=== PATIENT | female | born 1960 | race Caucasian/White ===

== ENCOUNTER 2018-06-13 06:32 | Day surgery (SDC) | payer BC ==
--- NOTE | 2018-06-08 15:06 | RAD REPORT ---
EXAM DESCRIPTION: Sánchez Hardin (2 Views)06/08/2018 2:48 pm CLINICAL HISTORY: Preop for heart catheterization COMPARISON: None FINDINGS: The lungs appear clear of acute infiltrate. The heart is normal size IMPRESSION: No acute abnormalities displayed
[2018-06-08 16:12] LABS: Protime INR 1.04
--- OUTSIDE RECORDS SUMMARY | 2018-06-13 06:34 | XMS REPORT ---
:1960 [facility] Address [address] [place] [address] Care Team Providers Name Role Phone Unavailable Unavailable Unavailable Payers Payer Name Policy Type Policy Number Effective Date Expiration Date Problems This patient has no known problems. Allergies, Adverse Reactions, Alerts Allergy Allergy Status Severity Reaction(s) Onset Inactive Treating Comments Name Type Date Date Clinician No Known DA Active U 2018-05 Allergies 00:00:0 0 Medications This patient has no known medications. Results Test Description Test Time Test Comments Text Results Atomic Results Result Comments AG HEPATITIS B SURFACE 2018-05-29 14:43:00 Test Item Value Reference Range Comments AG HEPATITIS B SURFACE (test code=HBSAG) NONREACTIVE NONREACTIVE IS CONSENT FORM SIGNED FOR HIV TESTING? YAB HEPATITIS C [id number] 14:43: 00 Test Item Value Reference Range Comments AB HEPATITIS C (test code=HCVAB) NONREACTIVE NONREACTIVE SIGNAL TO CUTOFF (test code=CUTOFF) 0.04 <0.80 IS CONSENT FORM SIGNED FOR HIV TESTING? YAB HIV 1 14:43:00 Test Item Value Reference Range Comments AB HIV 1 2 (test NONREACTIVE NONREACTIVE Done by [employer] 4th code=NJC12UA) Gen HIV Ag/Ab Combo Screen IS CONSENT FORM SIGNED FOR HIV TESTING? YCHEMISTRY 7 [id number] 14:15:00 Test Item Value Reference Range Comments SODIUM (test code=NA) 140 mEq/L 135-145 POTASSIUM (test code=K) 4.3 mEq/L 3.5-5.0 CHLORIDE (test code=CL) 102 mEq/L 100-115 CARBON DIOXIDE (test code=CO2) 29 mEq/L 22-31 ANION GAP (test code=GAP) 13.50 10-20 GLUCOSE (test code=GLU) 96 mg/dL 65-110 BLOOD UREA NITROGEN (test code=BUN) 17 mg/dL 7-18 GLOMERULAR FILTRATION RATE (test code=GFR) 103 ml/min >60 CREATININE (test code=CREAT) 0.6 mg/dL 0.5-1.0 CALCIUM (test code=CA) 9.2 mg/dL 8.4-10.2 URINALYSIS [id number] 13:15:00 Test Item Value Reference Range Comments UA COLOR (test code=COLU) STRAW YELLOW UA APPEARANCE (test code=APPU) CLEAR CLEAR UA GLUCOSE DIPSTICK (test code=DGLUU) NEGATIVE NEG UA BILIRUBIN DIPSTICK (test code=BILU) NEGATIVE NEG UA KETONE DIPSTICK (test code=KETU) NEGATIVE NEG UA SPECIFIC GRAVITY (test code=SGU) 1.008 1.001-1.035 UA BLOOD DIPSTICK (test code=WINSTON) NEG NEG UA PH DIPSTICK (test code=TAYLOR) 6.0 5-9 UA PROTEIN DIPSTICK (test code=PROU) NEGATIVE NEG UA UROBILINIOGEN DIPSTICK (test code=URO) NEGATIVE mg/dL NEG UA NITRITE DIPSTICK (test code=ERIS) NEG NEG UA LEUKOCYTE ESTERASE DIPSTICK (test NEG NEG code=LEUU) UA WBC (test code=WBCU) 0-2 #/hpf NONE SEEN UA RBC (test code=RBCU) 0-2 #/hpf NONE SEEN UA EPITHELIAL CELLS (test code=EPIU) RARE #/HPF RARE-FEW UA BACTERIA (test code=BACU) RARE /HPF RARE-FEW UA MUCUS (test code=MUCU) RARE NONE SEEN URINE SAMPLE: CLEAN CATCHCBC W/AUTO [id number] 12:59:00 Test Item Value Reference Range Comments WHITE BLOOD CELL (test code=WBC) 4.2 K/mm3 6.6-12.1 RED BLOOD CELL (test code=RBC) 4.82 M/mm3 3.45-5.01 HEMOGLOBIN (test code=HGB) 13.2 g/dL 10.7-13.9 HEMATOCRIT (test code=HCT) 41.4 % 32.1-42.1 MEAN CELL VOLUME (test code=MCV) 86 fL 84.1-94.8 MEAN CELL HGB (test code=MCH) 27.4 pg 27-35 MEAN CELL HGB CONCETRATION (test code=MCHC) 31.9 gm/dL 32.2-34.1 RED CELL DISTRIBUTION WIDTH (test code=RDW) 13.8 % 12.4-16.5 PLATELET COUNT (test code=PLT) 251 K/mm3 133-385 IMMATURE PLATELET FRACTION (test code=IPF) 0.0 % 0.0-10.8 MEAN PLATELET VOLUME (test code=MPV) 12.5 fl 9.1-12.7 NEUTROPHIL % (test code=NT%) 48.4 % 56.5-79.4 LYMPHOCYTE % (test code=LY%) 38.9 % 14.3-34.3 MONOCYTE % (test code=MO%) 9.2 % 5.1-10.4 EOSINOPHIL % (test code=EO%) 2.6 % 0.1-3.0 BASOPHIL % (test code=BA%) 0.9 % 0.1-1.0 NEUTROPHIL # (test code=NT#) 2.1 K/mm3 LYMPHOCYTE # (test code=LY#) 1.7 K/mm3 MONOCYTE # (test code=MO#) 0.4 K/mm3 EOSINOPHIL # (test code=EO#) 0.11 K/mm3 BASOPHIL # (test code=BA#) 0.0 K/mm3 RBC MORPHOLOGY REQUIRED (test code=RBCM) NORMAL NORMAL PLATELET MORPHOLOGY REQUIRED (test code=PLTMR) NORMAL NORMAL
[2018-06-13] MEDS ORDERED: LIDOCAINE 1% MPF 30 ML VIAL ONE (06:55)
[2018-06-13] MEDS ORDERED: HEPA 1000U/500MLS 1,000 UNIT/500 ML BAG IV ONE (06:55)
[2018-06-13] MEDS ORDERED: NA CHLORIDE 0.9% 500 ML ONE (07:02)
[2018-06-13] MEDS ORDERED: MIDAZOLAM HCL 2 MG/2 ML INJ ONE (07:33)
[2018-06-13] MEDS ORDERED: NA CHLORIDE 0.9% 0 ML ONE (07:34)
[2018-06-13] MEDS ORDERED: FENTANYL CITR 100 MCG/2 ML ONE (07:34)
[2018-06-13] MEDS ORDERED: ATROPINE SULF 1 MG/10 ML SYR IV ONE (07:34)
--- NOTE | 2018-06-15 07:24 | OP ---
Date of Procedure: 06/13/2018 Surgeon: Clay Paige MD Parking Lot Supervisor: Homero Kirby. Procedures: Left heart catheterization with selective coronary arteriogram and left ventriculogram. Indications: Abnormal EKG, abnormal stress test, and abnormal echocardiogram with left ventricular c ontraction. Description Of Procedure: The patient was brought into the clinical laboratory director as an outpatient, prepped and dr camryn in the routine sterile fashion. She was given 2 mg of Versed and 50 of fentanyl for IV sedation . IV access was obtained through the right common femoral artery with 6-Angolan sheath without any co mplication. Angiogram there was normal. Angio-Seal was placed to close the case. Darrel catheter was used to cannulate the left main and right main respectively. She had normal coronaries. LV-gram showed normal ejection fraction with what appears to be may be an abnormalities right before the ant eroapical wall, may be secondary to what the echo saw as contraction, but the ejection fraction never theless was normal. Complications: None. Blood Loss: 5 cc. Total Conscious Sedation: 30 minutes. Plan: Plan is for medical therapy. Final Diagnoses: Normal coronaries, possible left ventricular contraction. The patient will see me in the office in 2 weeks. She will go home today after 2 hours of bedrest. GASTON/WILBER Voice ID: [id number] Report ID: [id number]
== END 2018-06-13 09:55 | disposition home or self-care (01) ==
LOC: CCL 06:32
DX: I08.1 Rheumatic disorders of both mitral and tricuspid valves (principal); R94.31 Abnormal electrocardiogram [ECG] [EKG]
CPT/HCPCS: 36415; 71046; 85610; 85730; 93458; C1760; C1893; J0583; J2250; J3010

== ENCOUNTER 2020-05-26 12:43 | Emergency (ER) | payer BC ==
--- OUTSIDE RECORDS SUMMARY | 2020-05-26 12:45 | XMS REPORT | Continuity of Care Document ---
:1960 Author Organization [facility] t Address [address] [place] [address] Care Team Providers Name Role Phone Unavailable Unavailable Unavailable Payers Payer Name Policy Type Policy Number Effective Date Expiration Date S ource Problems This patient has no known problems. Allergies, Adverse Reactions, Alerts Allergy Allergy Status Severity Reaction(s) Onset Inactive Treating Comm ents Source Name Type Date Date Clinician No Known DA Active U [facility] [place] Medications This patient has no known medications. Procedures This patient has no known procedures. Results Test Description Test Time Test Comments Results Result [facility] shekhar NEWMAN W/WO 2018-07-03 TUBE/OVA. PROLAPSE 19:21:00 ----RUN DATE: 07/04/18 [facility] PAGE 1 RUN TIME: 916 Specimen Inquiry RUN USER: INTERFACE ----PATIENT: SUJATHA HERNANDEZ LOC: [facility]RAHAM U #: [id number] AGE/SX: 57/F ROOM: [facility] RE06/29/18REG DR: Yareli Zendejas MD : 62 BED: A DIS: 06/30/18 STATUS: DIS Emma TLOC: ---- SPEC #: [id number] RECD: 06/29/18 STATUS: KATHIE RE #: [id number] MARIA TERESA: 06/29/18- SUBM DR: Yareli Zendejas MD ENTERED: 06/29/18 SP TYPE: UTERUSPRO OTHR DR: ORDERED: LEVEL IV CODES: [id number] - UTERUS, NOS PROCEDURES: LEVEL IV (Incomplete) TISSUES: UTERUS, NOS - UTERUS, CERVIX, BILATERAL FALLOPIAN TUBES AND OVARIES CLINICAL HISTORY 57 year old, cystocele, uterine prolapse, rectocele (kr) FINAL DIAGNOSIS Uterus, hysterectomy: - cervix - Nabothian cysts - chronic inflammation - endometrium - benign endometrial polyp - myometrium - adenomyosis - serosa - no pathologic diagnosis - right ovary and fallopian tube, resection - endosalpingiosis - benign paratubal cyst - left ovary and fallopian tube, resection - no pathologic diagnosis Tissue code 1 CPT code(s): 41748 cds/wpd 07/03/18 GROSS DESCRIPTION ANATOMIC SOURCE OF TISSUE (per Requisition): Uterus, cervix, bilateral tubes and ovaries The specimen is received in formalin in a container labeled with the patient's name and designated "uterus, cervix, bilateral tubes and ovaries". The specimen consists of an 81 gm, 8 x 5 x 4 cm intact uterus with an attached cervix, fimbriated fallopian tubes (right 5.0 in length and left 5.5 cm in length), and ovaries (right 2.5 cm and left 2.2 cm). The uterine serosa is miller-pink and slightly nodular. The 3 cm ectocervix displays a central 0.8 cm slit-like os. The endometrial cavity displays a 2.5 x 1 x 0.2 cm miller-pink, polypoid lesion which comes within 0.5 cm of the lower uterine segment. CONTINUED ON NEXT PAGE ----RUN DATE: 07/04/18 [facility] PAGE 2 RUN TIME: 916 Specimen Inquiry RUN USER: INTERFACE ----SPEC #: [id number] PATIENT: SUJATHA HERNANDEZ #[id number] (Continued) GROSS DESCRIPTION (Continued) The cut surfaces are miller and homogeneous. There is no definite myometrial involvement. The remainder of the endometrium is miller and focally hemorrhagic with a thickness measuring up to 0.1 cm. The myometrium is miller and slightly trabeculated with a wall thickness measuring up to 1.7 cm. There are no intramural nodules. Fallopian tubes are pink-purple and hyperemic. The lumens are pinpoint. The ovarian stroma is miller and firm with multiple corpora albicans. Section code: A1 - cervix, A2 - anterior endomyometrium, A3 - posterior endomyometrium with entire polyp, A4 - additional endometrium, A5 - liability claims representative sections of right adnexa, A6 - liability claims representative sections of left adnexa. arleen 06/29/18 @ 1347 -------- Signed Leroy Richter 07/03/181920 ---- END OF REPORT HGB HCT 2018-06-30 07:01:00 Test Item Value Reference Range Interpretation Comme nts HEMOGLOBIN (test code = HGB) 10.9 g/dL 10.7-13.9 N HEMATOCRIT (test code = HCT) 33.1 % 32.1-42.1 N AG HEPATITIS B [id number] 14:43:00 Test Item Value Reference Range Interpretation Comments AG HEPATITIS B SURFACE (test code NONREACTIVE NONREACTIVE = HBSAG) IS CONSENT FORM SIGNED FOR HIV TESTING? YAB HEPATITIS C [id number] 14:43:00 Test Item Value Reference Range Interpretation Comments AB HEPATITIS C (test code = NONREACTIVE NONREACTIVE HCVAB) SIGNAL TO CUTOFF (test code = 0.04 <0.80 N CUTOFF) IS CONSENT FORM SIGNED FOR HIV TESTING? YAB HIV 1 14:43:00 Test Item Value Reference Range Interpretation Comments AB HIV 1 2 (test NONREACTIVE NONREACTIVE Done by Bianca Martines code = [id number]) 4th Gen HIV Ag/Ab Combo Screen IS CONSENT FORM SIGNED FOR HIV TESTING? YCHEMISTRY 7 [id number] 14:15:00 Test Item Value Reference Range Interpretation Comments SODIUM (test code = NA) 140 mEq/L 135-145 N POTASSIUM (test code = K) 4.3 mEq/L 3.5-5.0 N CHLORIDE (test code = CL) 102 mEq/L 100-115 N CARBON DIOXIDE (test code = CO2) 29 mEq/L 22-31 N ANION GAP (test code = GAP) 13.50 10-20 N GLUCOSE (test code = GLU) 96 mg/dL 65-110 N BLOOD UREA NITROGEN (test code = 17 mg/dL 7-18 N BUN) GLOMERULAR FILTRATION RATE (test 103 ml/min >60 N code = GFR) CREATININE (test code = CREAT) 0.6 mg/dL 0.5-1.0 N CALCIUM (test code = CA) 9.2 mg/dL 8.4-10.2 N URINALYSIS [id number] 13:15:00 Test Item Value Reference Range Interpretation Comments UA COLOR (test code = COLU) STRAW YELLOW UA APPEARANCE (test code = CLEAR CLEAR APPU) UA GLUCOSE DIPSTICK (test code NEGATIVE NEG = DGLUU) UA BILIRUBIN DIPSTICK (test NEGATIVE NEG code = BILU) UA KETONE DIPSTICK (test code NEGATIVE NEG = KETU) UA SPECIFIC GRAVITY (test code 1.008 1.001-1.035 N = SGU) UA BLOOD DIPSTICK (test code = NEG NEG WINSTON) UA PH DIPSTICK (test code = 6.0 5-9 TAYLOR) UA PROTEIN DIPSTICK (test code NEGATIVE NEG = PROU) UA UROBILINIOGEN DIPSTICK NEGATIVE mg/dL NEG (test code = URO) UA NITRITE DIPSTICK (test code NEG NEG = ERIS) UA LEUKOCYTE ESTERASE DIPSTICK NEG NEG (test code = LEUU) UA WBC (test code = WBCU) 0-2 #/hpf NONE SEEN UA RBC (test code = RBCU) 0-2 #/hpf NONE SEEN UA EPITHELIAL CELLS (test code RARE #/HPF RARE-FEW = EPIU) UA BACTERIA (test code = BACU) RARE /HPF RARE-FEW UA MUCUS (test code = MUCU) RARE NONE SEEN URINE SAMPLE: CLEAN CATCHCBC W/AUTO [id number] 12:59:00 Test Item Value Reference Range Interpretation Comments WHITE BLOOD CELL (test code = WBC) 4.2 K/mm3 6.6-12.1 L RED BLOOD CELL (test code = RBC) 4.82 M/mm3 3.45-5.01 N HEMOGLOBIN (test code = HGB) 13.2 g/dL 10.7-13.9 N HEMATOCRIT (test code = HCT) 41.4 % 32.1-42.1 N MEAN CELL VOLUME (test code = MCV) 86 fL 84.1-94.8 N MEAN CELL HGB (test code = MCH) 27.4 pg 27-35 N MEAN CELL HGB CONCETRATION (test 31.9 gm/dL 32.2-34.1 L code = MCHC) RED CELL DISTRIBUTION WIDTH (test 13.8 % 12.4-16.5 N code = RDW) PLATELET COUNT (test code = PLT) 251 K/mm3 133-385 N IMMATURE PLATELET FRACTION (test 0.0 % 0.0-10.8 N code = IPF) MEAN PLATELET VOLUME (test code = 12.5 fl 9.1-12.7 N MPV) NEUTROPHIL % (test code = NT%) 48.4 % 56.5-79.4 L LYMPHOCYTE % (test code = LY%) 38.9 % 14.3-34.3 H MONOCYTE % (test code = MO%) 9.2 % 5.1-10.4 N EOSINOPHIL % (test code = EO%) 2.6 % 0.1-3.0 N BASOPHIL % (test code = BA%) 0.9 % 0.1-1.0 N NEUTROPHIL # (test code = NT#) 2.1 K/mm3 LYMPHOCYTE # (test code = LY#) 1.7 K/mm3 MONOCYTE # (test code = MO#) 0.4 K/mm3 EOSINOPHIL # (test code = EO#) 0.11 K/mm3 BASOPHIL # (test code = BA#) 0.0 K/mm3 RBC MORPHOLOGY REQUIRED (test code NORMAL NORMAL = RBCM) PLATELET MORPHOLOGY REQUIRED (test NORMAL NORMAL code = PLTMR)
[2020-05-26] MEDS ORDERED: LEVALBUTEROL 1.25 MG/3 ML NEB ONE (14:14)
--- NOTE | 2020-05-26 14:26 | RAD REPORT ---
EXAM DESCRIPTION: CT - Chest For Pe Angio - 05/26/2020 2:02 pm CLINICAL HISTORY: shortness of breath, elevated D-dimer COMPARISON: Chest Pa And Lat (2 Views) dated 05/26/2020 TECHNIQUE: Dynamically enhanced 3 mm thick images of the chest were obtained during administration o f approximately 150mL Isovue 370 IV contrast. Coronal and oblique MIP reconstruction images were gene rated and reviewed. Exam utilizes a protocol to evaluate the pulmonary arterial tree. All CT scans are performed using dose optimization technique as appropriate and may include automated exposure control or mA/KV adjustment according to patient size. FINDINGS: No pulmonary emboli are identified. The aorta as imaged shows no acute or suspicious finding. No pericardial thickening or effusion. Card iomegaly is present. Partial atelectasis seen in the lung bases and posterior lung rdz. Small to moderate size layering pleural effusions are present, larger on the right. No pneumothorax or pleural based mass identified . Interstitial pattern is accentuated by motion. Areas of interstitial and alveolar edema are evident . No mediastinal or hilar suspicious masses. No chest wall masses or abnormal axillary lymphadenopathy. Bilateral breast implants are in place. IMPRESSION: No pulmonary emboli identified. Small left-side and moderate right-sided layering pleural effusions with atelectasis. Cardiomegaly is present. There is interstitial and alveolar opacities suggesting CHF or volume overlo ad.
[2020-05-26] MEDS ORDERED: FUROSEMIDE 40 MG/4 ML VIAL ONE ×2 (15:01→17:00)
--- NOTE | 2020-05-26 17:23 | ER ---
Nurse's Notes [facility] Name: Barbara Davies Age: 59 yrs Sex: Female : 1960 Arrival Date: 05/26/2020 Time: 12:54 Bed 20 Private MD: Diagnosis: Acute combined systolic (congestive) and diastolic (congestive) heart failure Presentation: 05/26 12:56 Chief complaint: Patient states: Got blood works done this morning. I got a call to ca1 come to the ER cause my D-dimer is high. Reports SOB x 1 week, SOB with exertion and laying down. Denies cough. Coronavirus screen: Client denies travel out of the [place] in the last 14 days. shortness of breath, Client presents with at least one sign or symptom that may indicate coronavirus-19. Standard/surgical mask placed on the client. Provider contacted for isolation considerations. The client reports previous COVID testing was negative. Date of collection: May 26, 2020. Ebola Screen: Patient negative for fever greater than or equal to 101.5 degrees Fahrenheit, and additional compatible Ebola Virus Disease symptoms Patient denies exposure to infectious person. Patient denies travel to an Ebola-affected area in the 21 days before illness onset. No symptoms or risks identified at this time. Initial Sepsis Screen: Does the patient meet any 2 criteria? No. Patient's initial sepsis screen is negative. Does the patient have a suspected source of infection? No. Patient's initial sepsis screen is negative. Risk Assessment: Do you want to hurt yourself or someone else? Patient reports no desire to harm self or others. Onset of symptoms was May 26, 2020. 12:56 Method Of Arrival: Ambulatory ca1 12:56 Acuity: ISREAL 3 ca1 Historical: - Allergies: 13:00 No Known Allergies; ca1 - Home Meds: 13:00 Corder Thyroid Oral [Active]; ca1 - PMHx: 13:00 Hypothyroidism; ca1 - PSHx: 13:00 Hysterectomy; Cardiac Cath; Breast Augmentation; ca1 - Immunization history:: Client reports receiving the 2nd dose of the Covid vaccine, Date received: April 15, 2020 Client reports receiving the 1st dose of the Covid vaccine, Flu vaccine is up to date. - Social history:: Smoking status: Patient denies any tobacco usage or history of. Screenin:08 Abuse screen: Denies threats or abuse. Nutritional screening: No deficits noted. jd3 Tuberculosis screening: No symptoms or risk factors identified. Fall Risk Ambulatory Aid- None/Bed Rest/Nurse Assist (0 pts). Gait- Normal/Bed Rest/Wheelchair (0 pts) Mental Status- Oriented to own ability (0 pts). Total Kamara Fall Scale indicates No Risk (0-24 pts). Assessment: 13:00 General: Appears in no apparent distress. comfortable, Behavior is calm, cooperative, jd3 appropriate for age. 13:00 Pain: Denies pain. Neuro: Level of Consciousness is awake, alert, obeys commands, jd3 Oriented to person, place, time, situation. Cardiovascular: Capillary refill < 3 seconds Patient's skin is warm and dry. Rhythm is irregular. Respiratory: Reports shortness of breath at rest Airway is patent Respiratory effort is even, unlabored, Respiratory pattern is regular, symmetrical, the patient has mild shortness of breath. GI: No signs and/or symptoms were reported involving the gastrointestinal system. : No signs and/or symptoms were reported regarding the genitourinary system. EENT: No signs and/or symptoms were reported regarding the EENT system. Derm: Skin is intact, Skin is dry, Skin is normal, Skin temperature is warm. Musculoskeletal: Circulation, motion, and sensation intact. Range of motion: intact in all extremities. 13:56 Reassessment: AM outpatient lab results reviewed, received order to cancel pending ER sr5 blood tests. Patient notified of plan of care. 14:07 Reassessment: Patient appears in no apparent distress at this time. No changes from jd3 previously documented assessment. Patient and/or family updated on plan of care and expected duration. Pain level reassessed. Patient is alert, oriented x 3, equal unlabored respirations, skin warm/dry/pink. 14:53 Reassessment: Patient appears in no apparent distress at this time. Patient and/or jd3 family updated on plan of care and expected duration. Pain level reassessed. Patient is alert, oriented x 3, equal unlabored respirations, skin warm/dry/pink. 16:06 Reassessment: Patient appears in no apparent distress at this time. Patient and/or jd3 family updated on plan of care and expected duration. Pain level reassessed. Patient is alert, oriented x 3, equal unlabored respirations, skin warm/dry/pink. 17:43 Reassessment: Patient appears in no apparent distress at this time. Patient and/or jd3 family updated on plan of care and expected duration. Pain level reassessed. Patient is alert, oriented x 3, equal unlabored respirations, skin warm/dry/pink. Patient states feeling better. Patient states symptoms have improved. Vital Signs: 12:56 BP 107 / 77; Pulse 102; Resp 20 S; Temp 98.1(TE); Pulse Ox 99% on R/A; Weight 68.04 kg ca1 (R); Height 5 ft. 5 in. (165.10 cm) (R); Pain 0/10; 14:07 Pulse 112; Resp 19 S; Pulse Ox 97% on R/A; jd3 14:53 BP 114 / 75; Pulse 107; Resp 20 S; Pulse Ox 98% on R/A; jd3 16:06 BP 108 / 83; Pulse 95; Resp 14 S; Pulse Ox 98% on R/A; jd3 16:50 BP 108 / 67; Pulse 96; Resp 18 S; Pulse Ox 96% on R/A; jd3 12:56 Body Mass Index 24.96 (68.04 kg, 165.10 cm) ca1 ED Course: 12:54 Patient arrived in ED. am2 12:58 Triage completed. ca1 13:00 Arm band placed on right wrist. ca1 13:07 Abner Lee PA is PHCP. jmm 13:07 Carlos Smith MD is Attending Physician. jmm 13:18 Enrique Durant RN is Primary Nurse. jd3 14:03 CT Chest For PE Angio In Process Unspecified. EDMS 14:08 Patient has correct armband on for positive identification. Bed in low position. Call j light in reach. Side rails up X 1. panel monitor on. Pulse ox on. NIBP on. 17:20 Jose Santos MD is Referral Physician. [facility] 17:43 No provider procedures requiring assistance completed. IV discontinued, intact, jd3 bleeding controlled, No redness/swelling at site. Pressure dressing applied. Administered Medications: 14:12 Drug: Xopenex (3) 1.25 mg Route: Inhalation; jd3 15:00 Follow up: Response: No adverse reaction jd3 14:52 Drug: Lasix (furosemide) 20 mg Route: IVP; Site: left forearm; jd3 15:50 Follow up: Response: No adverse reaction jd3 16:49 Not Given (Physician Discretion): Lasix (furosemide) 40 mg IVP once; give over 2 minutesjd3 Outcome: 17:23 Discharge ordered by MD. sidhu 17:43 Discharged to home ambulatory, with family. jd3 17:43 Condition: stable 17:43 Discharge instructions given to patient, family, Instructed on discharge instructions, follow up and referral plans. medication usage, Demonstrated understanding of instructions, follow-up care, medications, Prescriptions given X 2. 17:44 Patient left the ED. jd3 Signatures: Dispatcher [employer] EDMS Abner Lee PA PA jmm Resecker, Sam, RN RN sr5 Cayla Paz am2 Enrique Durant RN RN jd3 Vane Cano RN RN ca1 Corrections: (The following items were deleted from the chart) 12:59 12:56 Coronavirus screen: Client denies travel out of the [place] in the last 14 days. ca1 shortness of breath, Client presents with at least one sign or symptom that may indicate coronavirus-19. Standard/surgical mask placed on the client. Provider contacted for isolation considerations. ca1
--- NOTE | 2020-05-26 17:24 | EDPHYS ---
Physician Documentation [facility] Name: Barbara Davies Age: 59 yrs Sex: Female : 1960 Arrival Date: 05/26/2020 Time: 12:54 Bed 20 Private MD: ILENE Physician Carlos Smith HPI: 05/26 13:22 This 59 yrs old Female presents to ER via Ambulatory with complaints of jmm Abnormal Lab Results. 13:22 The patient has shortness of breath at rest. Onset: The symptoms/episode began/occurred jmm gradually. Duration: The symptoms are continuous. The patient's shortness of breath is aggravated by exertion, light activity, is alleviated by nothing. Associated signs and symptoms: Pertinent positives: non-productive cough, Pertinent negatives: fever. The patient has not experienced similar symptoms in the past. Historical: - Allergies: 13:00 No Known Allergies; ca1 - Home Meds: 13:00 [place] Thyroid Oral [Active]; ca1 - PMHx: 13:00 Hypothyroidism; ca1 - PSHx: 13:00 Hysterectomy; Cardiac Cath; Breast Augmentation; ca1 - Immunization history:: Client reports receiving the 2nd dose of the Covid vaccine, Date received: April 15, 2020 Client reports receiving the 1st dose of the Covid vaccine, Flu vaccine is up to date. - Social history:: Smoking status: Patient denies any tobacco usage or history of. ROS: 13:22 Constitutional: Negative for fever, chills, and weight loss, Cardiovascular: Negative jmm for chest pain, palpitations, and edema. 13:22 Respiratory: Positive for shortness of breath. 13:22 All other systems are negative. Exam: 13:22 Constitutional: This is a well developed, well nourished patient who is awake, alert, jmm and in no acute distress. Head/Face: atraumatic. Eyes: EOMI, no conjunctival erythema appreciated ENT: Moist Mucus Membranes Neck: Trachea midline, Supple Chest/axilla: Normal chest wall appearance and motion. Cardiovascular: Regular rate and rhythm. No edema appreciated 13:22 Abdomen/GI: Non distended, soft Back: Normal ROM Skin: General appearance color normal MS/ Extremity: Moves all extremities, no obvious deformities appreciated, no edema noted to the lower extremities Neuro: Awake and alert, normal gait Psych: Behavior is normal, Mood is normal, Patient is cooperative and pleasant 13:22 Respiratory: the patient does not display signs of respiratory distress, Respirations: normal, Breath sounds: rales, that are mild, are scattered. Vital Signs: 12:56 BP 107 / 77; Pulse 102; Resp 20 S; Temp 98.1(TE); Pulse Ox 99% on R/A; Weight 68.04 kg ca1 (R); Height 5 ft. 5 in. (165.10 cm) (R); Pain 0/10; 14:07 Pulse 112; Resp 19 S; Pulse Ox 97% on R/A; jd3 14:53 BP 114 / 75; Pulse 107; Resp 20 S; Pulse Ox 98% on R/A; jd3 16:06 BP 108 / 83; Pulse 95; Resp 14 S; Pulse Ox 98% on R/A; jd3 16:50 BP 108 / 67; Pulse 96; Resp 18 S; Pulse Ox 96% on R/A; jd3 12:56 Body Mass Index 24.96 (68.04 kg, 165.10 cm) ca1 MDM: 13:07 Patient medically screened. [facility] 17:19 Data reviewed: vital signs, nurses notes. Counseling: I had a detailed discussion with thea the patient and/or guardian regarding: the historical points, exam findings, and any diagnostic results supporting the discharge/admit diagnosis, lab results, radiology results, the need for outpatient follow up, the need for further work-up and treatment in the hospital, to return to the emergency department if symptoms worsen or persist or if there are any questions or concerns that arise at home. Refusal of service: The patient/guardian displays adequate decision making capability and despite a detailed discussion of alternatives, benefits, risks, and consequences refuses: Admission to the hospital for further work-up and treatment. ED course: Patient states feeling much better after IV lasix. Patient declined admission. I discussed the patient's case with Dr. Santos whom will follow up with the patient outpatient. Patient is otherwise given strict return precautions. patient understood and agrees with the plan of care. . 05/26 13:13 Order name: Basic Metabolic Panel [facility] 05/26 13:13 Order name: EKG; Complete Time: 13:14 [facility] 05/26 13:13 Order name: Cardiac monitoring; Complete Time: 13:19 [facility] 05/26 13:20 Order name: CT Chest For PE Angio; Complete Time: 14:28 [facility] 05/26 13:13 Order name: EKG - Nurse/Tech; Complete Time: 14:39 [facility] 05/26 13:13 Order name: IV Saline Lock; Complete Time: 13:57 [facility] 05/26 13:13 Order name: Labs collected and sent; Complete Time: 13:57 [facility] 05/26 13:13 Order name: O2 Per Protocol; Complete Time: 13:19 [facility] 05/26 13:13 Order name: O2 Sat Monitoring; Complete Time: 13:19 [facility] Administered Medications: 14:12 Drug: Xopenex (3) 1.25 mg Route: Inhalation; jd3 15:00 Follow up: Response: No adverse reaction jd3 14:52 Drug: Lasix (furosemide) 20 mg Route: IVP; Site: left forearm; jd3 15:50 Follow up: Response: No adverse reaction jd3 16:49 Not Given (Physician Discretion): Lasix (furosemide) 40 mg IVP once; give over 2 minutesjd3 Disposition: 05/26/20 17:23 Discharged to Home. Impression: Acute combined systolic (congestive) and diastolic (congestive) heart failure. - Condition is Stable. - Discharge Instructions: Heart Failure. - Prescriptions for Lasix 20 mg Oral Tablet - take 1 tablet by ORAL route once daily; 30 tablet. Albuterol Sulfate 90 mcg/actuation - inhale 1-2 puff by INHALATION route every 4-6 hours; 1 Inhaler. - Medication Reconciliation Form, Thank You Letter, Antibiotic Education, Prescription Opioid Use form. - Follow up: Jose Santos MD; When: 2 - 3 days; Reason: Recheck today's complaints, Continuance of care, Re-evaluation by your physician. Addendum: 05/28/2020 06:52 Co-signature as Attending Physician, Carlos Smith MD I agree with the assessment and c pappas plan of care. Signatures: Dispatcher [employer] Carlos Kang MD MD cha Mickail, Joel, PA PA jmm Davies, Jonathon, RN RN jd3 Vane Cano RN RN ca1 Corrections: (The following items were deleted from the chart) 05/26 14:00 13:14 Basic Metabolic Panel ordered. [facility] 14:00 13:14 CBC+H.LAB.BRZ ordered. [facility] 14:00 13:14 HEPATIC FUNCTION+C.LAB.BRZ ordered. [facility] 14:00 13:14 MAGNESIUM+C.LAB.BRZ ordered. [facility] 14:00 13:14 PROBNP+C.LAB.BRZ ordered. [facility] 14:00 13:14 PROTIME (+INR)+COAG.LAB.BRZ ordered. [facility] 14:00 13:14 TROPONIN (EMERG DEPT USE ONLY)+C.LAB.BRZ ordered. [facility] 17:44 17:23 05/26/2020 17:23 Discharged to Home. Impression: Acute combined systolic jd3 (congestive) and diastolic (congestive) heart failure. Condition is Stable. Forms are Medication Reconciliation Form, Thank You Letter, Antibiotic Education, Prescription Opioid Use. Follow up: Jose Santos; When: 2 - 3 days; Reason: Recheck today's complaints, Continuance of care, Re-evaluation by your physician. thea
[2020-05-26 17:49] VITALS: TEMP 98.1
[2020-05-26 17:54] VITALS: BP 108/67; O2SAT 96
--- NOTE | 2020-05-27 16:36 | EKG ---
Test Date: 2020-05-26 Test Time: 14:46:[address] Officer: ASHLY MEASUREMENT RESULTS: Intervals: Rate: 107 AR: 160 QRSD: 142 QT: 378 QTc: 504 [place]: P: 73 AR: 160 QRS: 82 T: -60 INTERPRETIVE STATEMENTS: Sinus tachycardia Possible Left atrial enlargement Nonspecific intraventricular block Cannot rule out Anterior infarct, age undetermined T wave abnormality, consider inferior ischemia Abnormal ECG No previous ECG available for comparison Electronically Signed On 05-27-20 16:33:15 CDT by Clay Paige
== END 2020-05-26 17:44 | disposition home or self-care (01) ==
LOC: ER 12:43
DX: I50.41 Acute combined systolic (congestive) and diastolic (congestive) heart failure (principal); E03.9 Hypothyroidism, unspecified; Z98.82 Breast implant status
CPT/HCPCS: 93005; 71275; Q9967; J1940 ×2; 96374; 99285